=== PATIENT | female | born 1985 | race Caucasian/White ===

== ENCOUNTER 2017-03-23 16:33 | Emergency (ER) | payer OTHER ==
[~2017-03-23 16:33] MED LIST: FLAGYL PO; FLEXERIL10 MG PO; MIRENA; NAPROSYN500 MG PO; NO MEDICATIONS; PRILOSEC20 M1 PO; PYLERA CAPSULE1 CAP PO; VOLTAREN75 MG PO; ZOFRAN ODT4 MG PO; ZOFRAN ODT4 MG/UDTAB PO
== END 2017-03-23 17:52 | disposition home or self-care (01) ==
LOC: SED 16:33
DX: J32.9 Chronic sinusitis, unspecified (principal); F17.200 Nicotine dependence, unspecified, uncomplicated
CPT/HCPCS: 96372; 99283; J1885

== ENCOUNTER 2017-05-04 22:26 | Emergency (ER) | payer OTHER ==
[~2017-05-04] VITALS: Ht 149.9 cm; Wt 104.3 kg
== END 2017-05-05 00:22 | disposition home or self-care (01) ==
LOC: SED 22:26
DX: T25.232A Burn of second degree of left toe(s) (nail), initial encounter (principal); F17.200 Nicotine dependence, unspecified, uncomplicated; X10.0XXA Contact with hot drinks, initial encounter
CPT/HCPCS: 16020; 99283